=== PATIENT | female | born 1945 | race Caucasian/White ===

== ENCOUNTER 2023-02-03 09:40 | Outpatient (CLI) | payer MEDICARE, BC, SELFPAY | END 2023-02-03 09:41 | disposition home or self-care (01) | PROVIDERS: Visit Provider Surgery | DX: L59.8 Other specified disorders of the skin and subcutaneous tissue related to radiation (principal); L97.822 Non-pressure chronic ulcer of other part of left lower leg with fat layer exposed; L03.116 Cellulitis of left lower limb | CPT/HCPCS: 87070; 97602; 99204 ==

== ENCOUNTER 2023-02-10 08:43 | Outpatient (CLI) | payer MEDICARE, BC, SELFPAY | END 2023-02-10 08:44 | disposition home or self-care (01) | LOC: WOUND 08:43 | PROVIDERS: Visit Provider Surgery | DX: L59.8 Other specified disorders of the skin and subcutaneous tissue related to radiation (principal) | CPT/HCPCS: 97597 ==

== ENCOUNTER 2023-02-17 10:31 | Outpatient (CLI) | payer MEDICARE, BC, SELFPAY | END 2023-02-17 10:32 | disposition home or self-care (01) | LOC: WOUND 10:31 | PROVIDERS: Visit Provider Surgery | DX: L59.8 Other specified disorders of the skin and subcutaneous tissue related to radiation (principal) | CPT/HCPCS: 97602 ==

== ENCOUNTER 2023-02-23 09:55 | Outpatient (CLI) | payer MEDICARE, BC, SELFPAY | END 2023-02-23 09:56 | disposition home or self-care (01) | LOC: WOUND 09:56 | PROVIDERS: Visit Provider Nurse Practitioner Family | DX: L59.8 Other specified disorders of the skin and subcutaneous tissue related to radiation (principal) | CPT/HCPCS: 97602; 99213 ==

== ENCOUNTER 2023-03-10 09:24 | Outpatient (CLI) | payer MEDICARE, BC, SELFPAY | END 2023-03-10 09:25 | disposition home or self-care (01) | LOC: WOUND 09:24 | PROVIDERS: Visit Provider Surgery | DX: L59.8 Other specified disorders of the skin and subcutaneous tissue related to radiation (principal); L97.828 Non-pressure chronic ulcer of other part of left lower leg with other specified severity; Y84.2 Radiological procedure and radiotherapy as the cause of abnormal reaction of the patient, or of later complication, without mention of misadventure at the time of the procedure | CPT/HCPCS: 97597 ==

== ENCOUNTER 2023-03-17 09:07 | Outpatient (CLI) | payer MEDICARE, BC, SELFPAY | END 2023-03-17 09:08 | disposition home or self-care (01) | LOC: WOUND 09:07 | PROVIDERS: Visit Provider Surgery | DX: L59.8 Other specified disorders of the skin and subcutaneous tissue related to radiation (principal) | CPT/HCPCS: 15271; Q4151 ==

== ENCOUNTER 2023-03-24 09:23 | Outpatient (CLI) | payer MEDICARE, BC, SELFPAY | END 2023-03-24 09:24 | disposition home or self-care (01) | LOC: WOUND 09:23 | PROVIDERS: Visit Provider Surgery | DX: L59.8 Other specified disorders of the skin and subcutaneous tissue related to radiation (principal) | CPT/HCPCS: 99213 ==

== ENCOUNTER 2023-03-31 10:12 | Outpatient (CLI) | payer MEDICARE, BC, SELFPAY | END 2023-03-31 10:13 | disposition home or self-care (01) | LOC: WOUND 10:13 | PROVIDERS: Visit Provider Surgery | DX: L59.8 Other specified disorders of the skin and subcutaneous tissue related to radiation (principal) | CPT/HCPCS: 15271; Q4151 ==

== ENCOUNTER 2023-04-07 09:29 | Outpatient (CLI) | payer MEDICARE, BC, SELFPAY | END 2023-04-07 09:30 | disposition home or self-care (01) | LOC: WOUND 09:29 | PROVIDERS: Visit Provider Surgery | DX: L59.8 Other specified disorders of the skin and subcutaneous tissue related to radiation (principal) | CPT/HCPCS: 15271; Q4151 ==

== ENCOUNTER 2023-04-14 09:14 | Outpatient (CLI) | payer MEDICARE, BC, SELFPAY | END 2023-04-14 09:15 | disposition home or self-care (01) | LOC: WOUND 09:14 | PROVIDERS: Visit Provider Family Medicine | DX: L59.8 Other specified disorders of the skin and subcutaneous tissue related to radiation (principal); L97.828 Non-pressure chronic ulcer of other part of left lower leg with other specified severity | CPT/HCPCS: 11719; 15271; Q4151 ==

== ENCOUNTER 2023-04-20 15:21 | Outpatient (CLI) | payer MEDICARE, BC, SELFPAY | END 2023-04-20 15:22 | disposition home or self-care (01) | LOC: WOUND 15:22 | PROVIDERS: Visit Provider Nurse Practitioner Family | DX: L59.8 Other specified disorders of the skin and subcutaneous tissue related to radiation (principal) | CPT/HCPCS: 97597 ==

== ENCOUNTER 2023-04-28 09:27 | Outpatient (CLI) | payer MEDICARE, BC, SELFPAY | END 2023-04-28 09:28 | disposition home or self-care (01) | LOC: WOUND 09:28 | PROVIDERS: Visit Provider Surgery | DX: L59.8 Other specified disorders of the skin and subcutaneous tissue related to radiation (principal); Y84.2 Radiological procedure and radiotherapy as the cause of abnormal reaction of the patient, or of later complication, without mention of misadventure at the time of the procedure | CPT/HCPCS: 15271; Q4151 ==

== ENCOUNTER 2023-05-05 09:50 | Outpatient (CLI) | payer MEDICARE, BC, SELFPAY | END 2023-05-05 09:51 | disposition home or self-care (01) | LOC: WOUND 09:50 | PROVIDERS: Visit Provider Surgery | DX: L59.8 Other specified disorders of the skin and subcutaneous tissue related to radiation (principal) | CPT/HCPCS: 15271; Q4151 ==

== ENCOUNTER 2023-05-12 09:21 | Outpatient (CLI) | payer MEDICARE, BC, SELFPAY | END 2023-05-12 09:22 | disposition home or self-care (01) | LOC: WOUND 09:22 | PROVIDERS: Visit Provider Surgery | DX: L59.8 Other specified disorders of the skin and subcutaneous tissue related to radiation (principal); L97.828 Non-pressure chronic ulcer of other part of left lower leg with other specified severity | CPT/HCPCS: 15271; Q4151 ==

== ENCOUNTER 2023-05-19 09:53 | Outpatient (CLI) | payer MEDICARE, BC, SELFPAY | END 2023-05-19 09:54 | disposition home or self-care (01) | LOC: WOUND 09:53 | PROVIDERS: Visit Provider Surgery | DX: L59.8 Other specified disorders of the skin and subcutaneous tissue related to radiation (principal) | CPT/HCPCS: 15271; Q4151 ==

== ENCOUNTER 2023-05-26 08:46 | Outpatient (CLI) | payer MEDICARE, BC, SELFPAY | END 2023-05-26 08:47 | disposition home or self-care (01) | LOC: WOUND 08:46 | PROVIDERS: Visit Provider Surgery | DX: L59.8 Other specified disorders of the skin and subcutaneous tissue related to radiation (principal); Y84.2 Radiological procedure and radiotherapy as the cause of abnormal reaction of the patient, or of later complication, without mention of misadventure at the time of the procedure | CPT/HCPCS: 15271; Q4151 ==

== ENCOUNTER 2023-06-09 09:07 | Outpatient (CLI) | payer MEDICARE, BC, SELFPAY | END 2023-06-09 09:08 | disposition home or self-care (01) | PROVIDERS: Visit Provider Physician Assistant | DX: L59.8 Other specified disorders of the skin and subcutaneous tissue related to radiation (principal); Y84.2 Radiological procedure and radiotherapy as the cause of abnormal reaction of the patient, or of later complication, without mention of misadventure at the time of the procedure | CPT/HCPCS: 15271; Q4151 ==

== ENCOUNTER 2023-06-16 08:48 | Outpatient (CLI) | payer MEDICARE, BC, SELFPAY | END 2023-06-16 08:49 | disposition home or self-care (01) | LOC: WOUND 08:49 | PROVIDERS: Visit Provider Family Medicine | DX: L59.8 Other specified disorders of the skin and subcutaneous tissue related to radiation (principal); Y84.2 Radiological procedure and radiotherapy as the cause of abnormal reaction of the patient, or of later complication, without mention of misadventure at the time of the procedure | CPT/HCPCS: 15271; Q4151 ==

== ENCOUNTER 2023-06-23 08:58 | Outpatient (CLI) | payer MEDICARE, BC, SELFPAY | END 2023-06-23 08:59 | disposition home or self-care (01) | LOC: WOUND 08:59 | PROVIDERS: Visit Provider Physician Assistant Surgical | DX: L59.8 Other specified disorders of the skin and subcutaneous tissue related to radiation (principal); Y84.2 Radiological procedure and radiotherapy as the cause of abnormal reaction of the patient, or of later complication, without mention of misadventure at the time of the procedure | CPT/HCPCS: 11042; 15271; Q4151 ==

== ENCOUNTER 2023-06-30 09:53 | Outpatient (CLI) | payer MEDICARE, BC, SELFPAY | END 2023-06-30 09:54 | disposition home or self-care (01) | LOC: WOUND 09:53 | PROVIDERS: Visit Provider Family Medicine | DX: L59.8 Other specified disorders of the skin and subcutaneous tissue related to radiation (principal) | CPT/HCPCS: 11042; G0463 ==

== ENCOUNTER 2023-07-07 09:54 | Outpatient (CLI) | payer MEDICARE, BC, SELFPAY | END 2023-07-07 09:55 | disposition home or self-care (01) | LOC: WOUND 09:54 | PROVIDERS: Visit Provider Physician Assistant | DX: L59.8 Other specified disorders of the skin and subcutaneous tissue related to radiation (principal); Y84.2 Radiological procedure and radiotherapy as the cause of abnormal reaction of the patient, or of later complication, without mention of misadventure at the time of the procedure | CPT/HCPCS: 15271; 97597; Q4151 ==

== ENCOUNTER 2023-07-14 10:02 | Outpatient (CLI) | payer MEDICARE, BC, SELFPAY | END 2023-07-14 10:03 | disposition home or self-care (01) | LOC: WOUND 10:02 | PROVIDERS: Visit Provider Physician Assistant | DX: L59.8 Other specified disorders of the skin and subcutaneous tissue related to radiation (principal); Y84.2 Radiological procedure and radiotherapy as the cause of abnormal reaction of the patient, or of later complication, without mention of misadventure at the time of the procedure | CPT/HCPCS: 15271; 97597; Q4151 ==

== ENCOUNTER 2023-07-21 10:08 | Outpatient (CLI) | payer MEDICARE, BC, SELFPAY | END 2023-07-21 10:09 | disposition home or self-care (01) | LOC: WOUND 10:08 | PROVIDERS: Visit Provider Family Medicine | DX: L59.8 Other specified disorders of the skin and subcutaneous tissue related to radiation (principal); Y84.2 Radiological procedure and radiotherapy as the cause of abnormal reaction of the patient, or of later complication, without mention of misadventure at the time of the procedure | CPT/HCPCS: 11042; 15271; Q4151 ==

== ENCOUNTER 2023-07-28 10:09 | Outpatient (CLI) | payer MEDICARE, BC, SELFPAY | END 2023-07-28 10:10 | disposition home or self-care (01) | LOC: WOUND 10:09 | PROVIDERS: Visit Provider Family Medicine | DX: L59.8 Other specified disorders of the skin and subcutaneous tissue related to radiation (principal); Y84.2 Radiological procedure and radiotherapy as the cause of abnormal reaction of the patient, or of later complication, without mention of misadventure at the time of the procedure | CPT/HCPCS: 15271; Q4151 ==

== ENCOUNTER 2023-08-04 10:05 | Outpatient (CLI) | payer MEDICARE, BC, SELFPAY | END 2023-08-04 10:06 | disposition home or self-care (01) | LOC: WOUND 10:05 | PROVIDERS: Visit Provider Family Medicine | DX: L59.8 Other specified disorders of the skin and subcutaneous tissue related to radiation (principal); Y84.2 Radiological procedure and radiotherapy as the cause of abnormal reaction of the patient, or of later complication, without mention of misadventure at the time of the procedure | CPT/HCPCS: 15271; Q4151 ==

== ENCOUNTER 2023-08-11 10:12 | Outpatient (CLI) | payer MEDICARE, BC, SELFPAY | END 2023-08-11 10:13 | disposition home or self-care (01) | LOC: WOUND 10:13 | PROVIDERS: Visit Provider Family Medicine | DX: L59.8 Other specified disorders of the skin and subcutaneous tissue related to radiation (principal); Y84.2 Radiological procedure and radiotherapy as the cause of abnormal reaction of the patient, or of later complication, without mention of misadventure at the time of the procedure; L98.9 Disorder of the skin and subcutaneous tissue, unspecified | CPT/HCPCS: 15271; Q4151 ==

== ENCOUNTER 2023-08-18 10:06 | Outpatient (CLI) | payer MEDICARE, BC, SELFPAY | END 2023-08-18 10:07 | disposition home or self-care (01) | LOC: WOUND 10:06 | PROVIDERS: Visit Provider Family Medicine | DX: L59.8 Other specified disorders of the skin and subcutaneous tissue related to radiation (principal); Y84.2 Radiological procedure and radiotherapy as the cause of abnormal reaction of the patient, or of later complication, without mention of misadventure at the time of the procedure | CPT/HCPCS: 15271; Q4151 ==

== ENCOUNTER 2023-08-25 10:10 | Outpatient (CLI) | payer MEDICARE, BC, SELFPAY | END 2023-08-25 10:11 | disposition home or self-care (01) | LOC: WOUND 10:10 | PROVIDERS: Visit Provider Physician Assistant | DX: L59.8 Other specified disorders of the skin and subcutaneous tissue related to radiation (principal); Y84.2 Radiological procedure and radiotherapy as the cause of abnormal reaction of the patient, or of later complication, without mention of misadventure at the time of the procedure | CPT/HCPCS: 15271; Q4151 ==

== ENCOUNTER 2023-09-01 10:07 | Outpatient (CLI) | payer MEDICARE, BC, SELFPAY | END 2023-09-01 10:08 | disposition home or self-care (01) | LOC: WOUND 10:08 | PROVIDERS: Visit Provider Family Medicine | DX: L59.8 Other specified disorders of the skin and subcutaneous tissue related to radiation (principal); Y84.2 Radiological procedure and radiotherapy as the cause of abnormal reaction of the patient, or of later complication, without mention of misadventure at the time of the procedure | CPT/HCPCS: 15271; Q4151 ==

== ENCOUNTER 2023-09-08 10:02 | Outpatient (CLI) | payer MEDICARE, BC, SELFPAY | END 2023-09-08 10:03 | disposition home or self-care (01) | LOC: WOUND 10:02 | PROVIDERS: Visit Provider Family Medicine | DX: L59.8 Other specified disorders of the skin and subcutaneous tissue related to radiation (principal) | CPT/HCPCS: 11042 ==

== ENCOUNTER 2023-09-15 11:21 | Outpatient (CLI) | payer MEDICARE, BC, SELFPAY | END 2023-09-15 11:22 | disposition home or self-care (01) | LOC: WOUND 11:22 | PROVIDERS: Visit Provider Surgery | DX: L59.8 Other specified disorders of the skin and subcutaneous tissue related to radiation (principal) | CPT/HCPCS: G0463 ==